=== PATIENT | female | born 1985 | race Caucasian/White ===

== ENCOUNTER 2019-12-13 07:48 | Emergency (ER) | payer BC, SELFPAY ==
[2019-12-13 07:53] VITALS: BMI 38.7
[2019-12-13 07:58] VITALS: BP 165/117; PULSE 84; RESP 18; TEMP 36.6; O2SAT 98
--- NOTE | 2019-12-13 08:06 | ED_ITS ---
HPI - Extremity Problem General: Chief complaint: Extremity Problem,Nontraumatic Stated complaint: INGROWN TOENAIL ON LEFT FOOT Time Seen by Provider: 12/13/19 07:58 History of Present Illness: HPI Narrative: Left great toe is red and swollen tender MD Complaint: other (Ingrown toe nail left great toe) Onset (ago): day(s) Location: left and other Severity scale (1-10): 4 Associated symptoms: Deny chest pain, fever(s) or rash Review of Systems 2 Const: Denies: fever(s), chills or body aches Eyes: Denies: change in vision or blurry vision ENMT: Denies: throat pain or nasal congestion Card: Denies: chest pain or dyspnea on exertion Resp: Denies: dyspnea, productive cough or non-productive cough GI: Denies: abdominal pain, nausea or vomiting Musc: Denies: extremity pain Skin/Breast: Reports: other (Ingrown nail left great toe); Denies: rash Neuro: Denies: headache(s) Psych: Denies: anxiety or depression Seven/Lymph: Denies: easy bruising PFSH ED PFSH: Social History Smoking and tobacco status: current every day smoker Female Reproductive History: Date of last menstrual period: 11/19/19 Physical Exam Const: COMMON NORMALS: no acute distress Skin: RASHES: other (Left great toe with redness with nail growing in on the medial and lateral aspect is tender no pus) Course Vital Signs: Vital signs: Vital Signs Temperature 97.8 F 12/13/19 07:58 Pulse Rate 84 12/13/19 07:58 Respiratory Rate 18 12/13/19 07:58 Blood Pressure 165/117 12/13/19 07:58 Pulse Oximetry 98 12/13/19 07:58 Discharge Plan Discharge Prescriptions: No Action No Known Home Medications RF: 0 Coding Level of Care Code ED Doctor Of Podiatric Medicine for Scot Maynard
== END 2019-12-13 08:15 | disposition home or self-care (01) ==
PROVIDERS: Emergency Provider Nurse Practitioner Family; PCP Family Medicine
DX: L60.0 Ingrowing nail (principal); F17.210 Nicotine dependence, cigarettes, uncomplicated
CPT/HCPCS: 12345; 99281

== ENCOUNTER 2020-02-16 22:54 | Emergency (ER) | payer SELFPAY ==
[2020-02-16 23:24] VITALS: BP 182/118; PULSE 105; RESP 18; TEMP 36.4; O2SAT 95; BMI 42.3
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
[2020-02-16 23:57] LABS: Basophils % 0.3 %; Eosinophils # 0.2 10^3/uL (0.0-0.8); Eosinophils % 1.7 %; Hematocrit 42.7 % (37.0-47.0); Hemoglobin 13.8 g/dL (11.5-15.3); Lymphocytes # 3.9 10^3/uL (0.8-4.8); Lymphocytes % 37.4 %; Mean Corpuscular HGB Conc 32.3 g/dL (30.0-36.0); Mean Corpuscular Hemoglobin 30.7 pg (28.0-34.0); Mean Corpuscular Volume 95.1 fL (81-99); Mean Platelet Volume 9.5 fL (7.4-10.4); Monocytes # 0.8 10^3/uL (0.2-0.9); Monocytes % 7.8 %; Neutrophils # 5.53 10^3/uL (1.8-7.7); Neutrophils % 52.5 %; Nucleated Red Blood Cells % 0 %; Platelet Count 282 10^3/cmm (130-400); Red Blood Count 4.49 10^6/uL (4.1-5.3); Red Cell Distribution Width 12.6 % (12.1-15.1); White Blood Count 10.5 10^3/uL (4.0-10.0)
[2020-02-17 00:12] VITALS: RESP 20
[2020-02-17] MEDS: fentaNYL 50 mcg/mL INJ 2mL IVP (00:12)
[2020-02-17 00:15] VITALS: BP 140/93; PULSE 90; RESP 20; O2SAT 99
[2020-02-17 00:16] LABS: HCG, Serum Qual Negative (Negative)
[2020-02-17] MEDS: HYDROcodone-acetaminophen 7.5-325 mg Tablet 1 TAB PO (01:43)
[2020-02-17 01:56] VITALS: BP 128/81; PULSE 88; RESP 20; O2SAT 97
== END 2020-02-17 01:57 | disposition home or self-care (01) ==
PROVIDERS: Emergency Provider Nurse Practitioner Family; PCP Family Medicine
DX: S13.4XXA Sprain of ligaments of cervical spine, initial encounter (principal); S29.012A Strain of muscle and tendon of back wall of thorax, initial encounter; S39.012A Strain of muscle, fascia and tendon of lower back, initial encounter; V89.2XXA Person injured in unspecified motor-vehicle accident, traffic, initial encounter; F17.210 Nicotine dependence, cigarettes, uncomplicated
CPT/HCPCS: 12345; 72125; 72128; 72131; 84703; 85025; 96374; 96375; 99283; J3010

== ENCOUNTER 2020-08-16 08:44 | Outpatient (CLI) | payer BC, SELFPAY ==
--- NOTE | 2020-08-16 | MR_ITS ---
WS: [id number] MRI CERVICAL SPINE NONCONTRAST TECHNIQUE: Sagittal T1, T2 and STIR imaging. Axial T2, gradient, and fiesta imaging. CLINICAL INFORMATION: CERVICAL PAIN COMPARISON: None. FINDINGS: Straightening of the normal cervical lordosis. Cord signal is normal. No high-grade central canal esau nosis. C2-C3: Normal. C3-C4: Normal. C4-C5: No significant disc bulging. Spinal canal and foramen are patent. C5-C6: No significant disc bulging. Spinal canal and foramen are patent. C6-C7: Minimal annular bulging. Mild left and no significant right foraminal narrowing. Spinal canal is patent. C7-T1: Mild endplate ridging. Mild left and no significant right foraminal narrowing. Spinal canal is patent. Mild facet arthropathy. Visualized brain stem structures: Normal. Prevertebral soft tissues: Normal. MR/MR cervical spin wo con* [id number] IMPRESSION: 1. Straightening of the normal cervical lordosis. Cord signal is normal. 2. Mild annular bulging C6-C7 with slight effacement of the left ventral theca l sac and mild left foraminal narrowing. Recommend correlation for left C7 nerv e root symptoms. 3. Mild left C7-T1 bony foraminal narrowing. Recommend correlation for left C8 nerve root symptoms. 4. Cord signal is normal. No significant spinal canal narrowing.
== END 2020-08-16 08:45 | disposition home or self-care (01) ==
LOC: RADWPI 08:48
PROVIDERS: PCP Family Medicine; Visit Provider Family Medicine
DX: M54.12 Radiculopathy, cervical region (principal); M54.10 Radiculopathy, site unspecified; M50.223 Other cervical disc displacement at C6-C7 level
CPT/HCPCS: 72141

== ENCOUNTER → 2020-10-23 15:20 | Outpatient (BNVA) | payer BC, SELFPAY | PROVIDERS: PCP Family Medicine; Visit Provider Obstetrics & Gynecology | DX: Z12.4 Encounter for screening for malignant neoplasm of cervix (principal); N89.8 Other specified noninflammatory disorders of vagina | CPT/HCPCS: 87481; 87512; 87798; 87799; 88175 ==

== ENCOUNTER 2021-04-24 12:12 | Outpatient (CLI) | payer BC, SELFPAY ==
--- NOTE | 2021-04-24 12:40 | XR_ITS ---
WS: [id number] Exam: XR cervical spine fl/ex [id number] Date/Time of Exam: 04/24/2021 12:40 PM Reason For Exam: CERVICALGIA No fracture or malalignment from the lateral projection. No flexion or extension instability. Paraspi nal soft tissues are unremarkable. There is straightening of the C-spine in the neutral position. XR/XR cervical spine fl/ex [id number] IMPRESSION: 1. No fracture or instability. 2. Straightening of the cervical spine.
== END 2021-04-24 12:13 | disposition home or self-care (01) ==
LOC: RAD 12:24
PROVIDERS: PCP Family Medicine; Visit Provider Nurse Practitioner
DX: M54.2 Cervicalgia (principal)
CPT/HCPCS: 72040

== ENCOUNTER 2022-04-26 12:57 | Emergency (ER) | payer BC, SELFPAY ==
[2022-04-26 13:16] VITALS: BP 169/113; PULSE 89; RESP 20; TEMP 36.6; O2SAT 98; BMI 51.1
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
[2022-04-26] MEDS: ketorolac 30 mg/mL INJ 15 MG IM (15:11)
[2022-04-26 15:39] VITALS: BP 156/109; RESP 16; O2SAT 97
[2022-04-26 16:13] VITALS: BP 130/82; PULSE 80; RESP 18; O2SAT 97
[2022-04-26 16:28] VITALS: BP 112/94; PULSE 79; RESP 18; O2SAT 98
[2022-04-26 17:01] VITALS: PULSE 76; RESP 18; O2SAT 97
== END 2022-04-26 17:02 | disposition home or self-care (01) ==
PROVIDERS: Emergency Provider Student in an Organized Health Care Education/Training Program; PCP Family Medicine
DX: R51.9 Headache, unspecified (principal); M54.2 Cervicalgia
CPT/HCPCS: 70450; 72125; 72170; 72220; 96372; 99285; J1885

== ENCOUNTER → 2024-07-03 10:53 | Outpatient (BNVA) | payer BC, MEDICAID, SELFPAY | PROVIDERS: PCP Family Medicine; Visit Provider Registered Nurse Neonatal Intensive Care | DX: J02.9 Acute pharyngitis, unspecified (principal) | CPT/HCPCS: 87071; 87880 ==

== ENCOUNTER 2024-12-20 20:01 | Emergency (ER) | payer OTHER, SELFPAY ==
[2024-12-20] VITALS (7 sets, daily range): BP systolic 135–192; BP diastolic 88–119; PULSE 70–82; RESP 14–20; TEMP 36.4; O2SAT 93–99; BMI 50.0
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
--- NOTE | 2024-12-20 20:12 | ECG_ITS ---
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
--- NOTE | 2024-12-20 20:21 | XRR_ITS ---
PROCEDURE INFORMATION: Exam: XR Chest Exam date and time: 12/20/2024 8:24 PM Age: 39 years old Clinical indication: Pain; Chest pressure; Additional info: Chest pain TECHNIQUE: Imaging protocol: Radiologic exam of the chest. Views: 1 view. COMPARISON: CR XR chest 2V* [id number] 06/24/2019 9:01 AM FINDINGS: Lungs: Unremarkable. No consolidation. Pleural spaces: Unremarkable. No pleural effusion. No pneumothorax. Heart/Mediastinum: Unremarkable. No cardiomegaly. Bones/joints: Unremarkable. XR/XR chest 1V portable [id number] IMPRESSION: No acute findings.
--- NOTE | 2024-12-20 20:22 | ED_ITS ---
HPI - Dizziness 2 General: Chief Complaint: Dizziness Stated Complaint: suddenly dizzy arms hurt nausea Time Seen by Provider: 12/20/24 20:20 History of Present Illness: HPI Narrative: Patient is a anxious appearing 39-year-old female who reports feeling well throughout the day at work, aside from being tired due to only five hours of sleep the previous night. After leaving work at 5:30 PM, pt began experiencing dizziness, which persisted and worsened upon arriving home. Pt describes difficulty focusing, a floaty sensation, and subsequently developed tremors, nausea, and tingling with pain in the hands and arms. There was also pain in the shoulder blades and a localized pain on one side of the chest, but no classic chest pain. Pt attempted to eat, which worsened the nausea. Pt denies ever having similar symptoms before. Pt reports anxiety but did not use marijuana after work due to feeling unwell, though typically uses marijuana and vapes nicotine. No EtOH use. No current medications. Pt expresses concern about health and has never had a similar health scare. Reports intermittent swelling of the foot, which recurred after weight gain following cessation of a weight-loss medication about a year ago. No history of blood clots, but prior swelling evaluated with ultrasound in the past. Related Data Previous Rx's ?Medication ?Instructions ?Recorded amoxicillin 875 mg tablet 875 mg PO BID 10 days #20 ta bs 07/03/24 Allergies Allergy/AdvReac Type Severity Reaction Status Date / Time erythromycin base Allergy Severe ALGY-Rash Verified 12/20/24 20:14 PFSH ED 2 PFSH: Family History (Updated 10/23/20 @ 14:00 by Riri Cohen LPN) Grandmother Breast cancer Maternal Stroke Maternal Grandfather Cancer maternal lung cancer Denies family history of Diabetes Clotting disorder Hyperlipidemia Chronic kidney disease (CKD) Anesthesia complication Bleeding disorder Hypertension Thyroid disease Social History (Updated 10/24/21 @ 08:09 by Lissy Granados LPN) Smoking and tobacco/nicotine status: current every day tobacco/nicotine user Substance/Drug Use: current Substance/Drug use frequency: daily Other substance/drug use details: Medical marijuana Physical Exam 2 Const: COMMON NORMALS: no acute distress, patient oriented x3 and alert HENMT: COMMON NORMALS: normocephalic and atraumatic HEAD & SCALP: n ormocephalic and atraumatic Eye: COMMON NORMALS: Equal, round and reactive pupils present, EOMs intact bilaterally and no scleral icterus PUPIL: Yes Equal, round and reactive pupils present Resp: COMMON NORMALS: normal respiratory effort and No retractions Cardio: COMMON NORMALS: regular rate, regular rhythm and No murmurs present (Cardio) RATE: regular rate RHYTHM: regular rhythm GI: COMMON NORMALS: Normal to inspection, nondistended, normoactive bowel sounds present, Soft to palpation and non-tender PALPATION: Yes Soft to palpation Neuro: COMMON NORMALS: patient oriented x3 SENSORIUM/ORIENTATION: Yes alert Psych: OTHER: Mildly anxious, no SI or HI. No hallucinations. Skin: COMMON NORMALS: no rashes or lesions noted GENERAL SKIN EXAM: no rashes or lesions noted Course 2 Vital Signs: Vital signs: Vital Signs Temperature 97.5 F L 12/20/24 20:04 Pulse Rate 71 12/20/24 22:30 Respiratory Rate 14 12/20/24 22:30 Blood Pressure 141/93 12/20/24 22:30 Pulse Oximetry 93 12/20/24 22:30 Oxygen Delivery Me thod Room Air 12/20/24 22:30 [facility] - Dizziness Medical Decision Making In summary, patient is a generally well-appearing 39-year-old female seen for constellation of symptoms which likely amount to an anxiety attack. EKG, troponin x 2, chest x-ray, labs are all reassuring with no evidence of ACS, PE, pneumonia, or any other emergent process warranting further workup. We discussed this at length. She shows good understanding and feels much better after receiving a small dose of Ativan. She admits to a history of anxiety and thinks that stress at work could be contributing to her symptoms greatly. Lab Data 12/20/24 20:44 12/20/24 20:44 Radiology Impressions Chest X-Ray 12/20/24 20:21 IMPRESSION: No acute findings. Laboratory Results WBC 9.15 10^3/uL (3.29-11.43) 12/20/24 20:44 RBC 4.32 10^6/uL (3.85-5.65) 12/20/24 20:44 Hgb 13.30 g/dL (11.27-16.99) 12/20/24 20:44 Hct 40.0 % (36-47) 12/20/24 20:44 MCV 92.6 fl (85-98) 12/20/24 20:44 MCH 30.8 pg (27-33) 12/20/24 20:44 MCHC 33.3 g/dL (30-55) 12/20/24 20:44 RDW 12.4 % (12.1-15.1) 12/20/24 20:44 Plt Count 291 10^3/cmm (157-399) 12/20/24 20:44 MPV 9.2 fL (7.4-10.4) 12/20/24 20:44 Neut % (Auto) 51.3 % 12/20/24 20:44 Lymph % (Auto) 38.7 % 12/20/24:44 Vernon % (Auto) 6.6 % 12/20/24:44 Eos % (Auto) 2.6 % 12/20/24:44 Baso % (Auto) 0.4 % 12/20/24:44 Neut # (Auto) 4.69 10^3/uL (1.8-7.7) 12/20/24 20:44 Lymph # (Auto) 3.5 10^3/uL (0.8-4.8) 12/20/24 20:44 Vernon # (Auto) 0.6 10^3/uL (0.2-0.9) 12/20/24 20:44 Eos # (Auto) 0.2 10^3/uL (0.0-0.8) 12/20/24:44 Baso # (Auto) 0.0 10^3/uL (0.0-0.1) 12/20/24 20:44 Nucleated RBC % (auto) 0 % 12/20/24:44 Nucleated RBCs # 0.0 /100WBC 12/20/24 20:44 Sodium 137 mmol/L (136-145) 12/20/24 20:44 Potassium 4.2 mmol/L (3.5-5.1) 12/20/24 20:44 Chloride 101 mmol/L (98-107) 12/20/24 20:44 Carbon Dioxide 24 mmol/L (22-29) 12/20/24 20:44 Anion Gap 16.2 (5-19) 12/20/24 20:44 BUN 12 mg/dL (6-20) 12/20/24 20:44 Creatinine 0.8 mg/dL (0.5-0.9) 12/20/24 20:44 GFR Calculation 79.9 mL/min (90-130) L 12/20/24 20:44 Glucose 127 mg/dL (65-115) H 12/20/24 20:44 Calculated Osmolality 285 mOsm/kg (285-295) 12/20/24 20:44 Calcium 9.1 mg/dL (8.5-10.5) 12/20/24 20:44 Total Bilirubin 0.2 mg/dL (0.15-1.2) 12/20/24 20:44 AST 15 U/L (0-32) 12/20/24 20:44 ALT 14 U/L (0-33) 12/20/24 20:44 Alkaline Phosphatase 61 U/L (35-105) 12/20/24 20:44 Troponin T Baseline < 6 ng/L (0-10) 12/20/24 20:44 Troponin T 120 Minute < 6.0 ng/L (0-10) 12/20/24 22:02 Delta Troponin T 0 ABS# (0-10) 12/20/24 22:02 Total Protein 6.8 g/dL (6.6-8.7) 12/20/24 20:44 Albumin 3.9 g/dL (3.5-5.2) 12/20/24 20:44 Globulin 2.9 g/dL (1.3-4.6) 12/20/24 20:44 All radiology interpretation(s) finalized by discharge EKG Data EKG 1: Interpretation: Time?2011?sinus rhythm, rate of 76, no ST segment elevation or depression, no T wave inversions, QTc = 407 Discharge Plan Discharge Patient Disposition: Home Clinical Impression: Anxiety attack Condition: Stable Prescriptions: No Action amoxicillin 875 mg tablet 875 mg PO BID 10 Days Qty: 20 0RF Discharge Orders: Discharge ED (Routine); Ordered 12/20/24 Ordered By: Juan M Marin Referrals: Dontrell Hester MD [Primary Care Provider, [facility]] Discharge Diet: Advance as tolerated Discharge Activity: Increase activity as tolerated Patient Instructions: Anxiety (ED), Patient Portal & Jenny Instructions Print Language: Indonesian Coding Level of Care Code ED 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
[2024-12-20] MEDS: sodium chloride 0.9% 1,000 ML 999 ML IV (20:41)
[2024-12-20] MEDS: aspirin 81 mg Chew Tablet 324 MG PO (20:44)
[2024-12-20 20:53] LABS: Basophils % 0.4 %; Eosinophils # 0.2 10^3/uL (0.0-0.8); Eosinophils % 2.6 %; Lymphocytes # 3.5 10^3/uL (0.8-4.8); Lymphocytes % 38.7 %; Mean Corpuscular HGB Conc 33.3 g/dL (30-55); Mean Corpuscular Hemoglobin 30.8 pg (27-33); Mean Corpuscular Volume 92.6 fl (85-98); Mean Platelet Volume 9.2 fL (7.4-10.4); Monocytes # 0.6 10^3/uL (0.2-0.9); Monocytes % 6.6 %; Neutrophils # 4.69 10^3/uL (1.8-7.7); Neutrophils % 51.3 %; Nucleated Red Blood Cells % 0 %; Platelet Count 291 10^3/cmm (157-399); Red Blood Count 4.32 10^6/uL (3.85-5.65); Red Cell Distribution Width 12.4 % (12.1-15.1); White Blood Count 9.15 10^3/uL (3.29-11.43)
[2024-12-20] MEDS: LORazepam 1 MG/0.5 ML injection IVP (21:07)
[2024-12-20 21:14] LABS: Troponin(5th) Baseline < 6 ng/L (0-10)
[2024-12-20 21:19] LABS: Alanine Aminotransferase 14 U/L (0-33); Albumin Level 3.9 g/dL (3.5-5.2); Alkaline Phosphatase 61 U/L (35-105); Anion Gap 16.2 (5-19); Aspartate Amino Transferase 15 U/L (0-32); Blood Urea Nitrogen 12 mg/dL (6-20); Calcium 9.1 mg/dL (8.5-10.5); Carbon Dioxide 24 mmol/L (22-29); Chloride 101 mmol/L (98-107); Creatinine Clr Calc Pharmacy 136.8616; Globulin 2.9 g/dL (1.3-4.6); Glomerular Filtration Rate 79.9 mL/min (90-130); Glucose 127 mg/dL (65-115); Osmolality Calculated 285 mOsm/kg (285-295); Potassium 4.2 mmol/L (3.5-5.1); Sodium 137 mmol/L (136-145); Total Bilirubin 0.2 mg/dL (0.15-1.2); Total Protein 6.8 g/dL (6.6-8.7)
[2024-12-20 22:31] LABS: Troponin 5 2HR < 6.0 ng/L (0-10); Troponin 5 2HR Delta 0 ABS# (0-10)
== END 2024-12-20 23:13 | disposition home or self-care (01) ==
PROVIDERS: Emergency Provider Student in an Organized Health Care Education/Training Program; PCP Family Medicine
DX: F41.8 Other specified anxiety disorders (principal); Z72.0 Tobacco use
CPT/HCPCS: 36415; 71045; 80053; 84484; 85025; 93005; 96361; 96374; 99285; J2060; J7030; J9999